=== PATIENT | male | born 1965 | race Caucasian/White ===

== ENCOUNTER 2017-06-01 11:03 | Emergency (ER) | payer BC ==
--- NOTE | 2017-06-01 11:52 | ED ---
General Adult HPI - General Chief complaint: Extremity Injury, Upper Stated complaint: right hand pain Time Seen by Provider: 06/01/17 11:20 Source: patient, RN notes reviewed Mode of arrival: ambulatory Limitations: no limitations - History of Present Illness Initial comments: This is a 51-year-old male who presents emergency Department complaining of hand pain over the fifth metacarpal. Patient states he was working with a chain binder and the chain came off and hit him in the hand. Patient denies any bleeding. Patient denies any finger pain or wrist pain. Patient states it is mildly swollen. Patient states he already had pain medicine before he came straight doesn't need any currently. Patient denies any other injury. - Related Data Home Medications Medication Instructions Recorded Confirmed HYDROcodone/APAP 10-325MG [[place] 1 tab PO Q6H PRN 04/14/16 06/01/17 10-325] Dextroamphetamine/Amphetamine 10 mg PO BID 06/01/17 06/01/17 [Adderall] Allergies Allergy/AdvReac Type Severity Reaction Status Date / Time diphenhydramine AdvReac Rash/Hives Verified 06/01/17 12:25 [From Benadryl] levofloxacin [From Levaquin] AdvReac Chest Pain Verified 06/01/17 12:25 Review of Systems ROS Statement: Those systems with pertinent positive or pertinent negative responses have been documented in the HPI. ROS Other: All systems not noted in ROS Statement are negative. Past Medical History Additional Past Medical History / Comment(s): back History of Any Multi-Drug Resistant Organisms: None Reported Past Surgical History: Appendectomy Past Psychological History: No Psychological Hx Reported Smoking Status: Current every day smoker Past Alcohol Use History: None Reported Past Drug Use History: None Reported, Marijuana General Exam - General Exam Comments Initial Comments: GENERAL Patient is well-developed and well-nourished. Patient is in mild distress. EYES Patient's pupils are equal and round. Extraocular motion is intact SKIN Unremarkable NEURO The patient is alert and oriented 3 PYSCH Patient has normal interpersonal interactions. MUSCULOSKELETAL Patient's right hand is tender along the fifth metacarpal Limitations: no limitations Course Vital Signs 06/01/17 11:20 Temperature 98.8 F Pulse Rate 90 Respiratory 20 Rate Blood Pressure 153/109 O2 Sat by Pulse 96 Oximetry Procedures - Orthopedic Splinting/Casting Injury #1 Side: right Upper Extremity Injury Location: hand Upper Extremity Immobilizer: volar splint Medical Decision Making - Medical Decision Making Patient's x-ray of the hand shows a proximal fifth metacarpal fracture. I [facility] with [facility] and wanted Dr. Robert Patino to see the patient. Disposition Clinical Impression: Fracture of metacarpal Disposition: HOME SELF-CARE Instructions: Hand Fracture (ED) Referrals: Jael Ravi MD [Primary Care Provider] - 1-2 days Time of Disposition: 12:55
--- NOTE | 2017-06-01 12:38 | XR ---
Right hand HISTORY: Trauma and pain 3 views of the right hand There is a comminuted fracture of the proximal fifth metacarpal which extends into the carpometacarpa l joint. Some displacement of the medial fracture fragment is noted which is rotated. No dislocation evident. There is soft tissue swelling. IMPRESSION: Proximal fifth intra-articular metacarpal fracture.
[2017-06-01 13:09] VITALS: BP 138/89; PULSE 72; RESP 18; TEMP 98.2
== END 2017-06-01 13:12 | disposition home or self-care (01) ==
LOC: EC 11:03
DX: S62.306A Unspecified fracture of fifth metacarpal bone, right hand, initial encounter for closed fracture (principal); F17.200 Nicotine dependence, unspecified, uncomplicated; Z88.8 Allergy status to other drugs, medicaments and biological substances; Z88.1 Allergy status to other antibiotic agents; Z79.899 Other long term (current) drug therapy; W22.8XXA Striking against or struck by other objects, initial encounter; Y93.89 Activity, other specified
CPT/HCPCS: 29125; 99283

== ENCOUNTER → 2020-04-21 | Outpatient (CLI) | payer OTHER ==
--- NOTE | 2020-04-21 14:35 | US ---
EXAMINATION TYPE: US kidneys/renal and bladder DATE OF EXAM: 04/21/2020 COMPARISON: MRI lumbar spine 2011. CLINICAL HISTORY: R10.9 R Flank pain N50.8 R Scrotum pain. EXAM MEASUREMENTS: Right Kidney: 11.6 x 5.3 x 5.3 cm Left Kidney: 12.4 x 6.4 x 5.7 cm Right Kidney: No hydronephrosis or masses seen Left Kidney: No hydronephrosis or masses seen Bladder: wnl There is no evidence for hydronephrosis at this point in time. No nephrolithiasis is seen. No larissa s are identified. The urinary bladder is satisfactorily distended. Bilateral ureteral jets are not seen. IMPRESSION: No hydronephrosis noted bilaterally.
--- NOTE | 2020-04-21 14:37 | US ---
EXAMINATION TYPE: US scrotum with doppler. Grayscale and color Doppler Duplex imaging performed of t he scrotum. DATE OF EXAM: 04/21/2020 COMPARISON: NONE CLINICAL HISTORY: R10.9 R Flank pain N50.8 R Scrotum pain. EXAM MEASUREMENTS: TESTICLES: Right Testicle: 4.2 x 1.7 x 1.7 cm Left Testicle: 3.8 x 2.0 x 1.9 cm EPIDIDYMIS HEAD: Right Epididymis: 1.0 cm Left Epididymis: 1.0 cm Doppler performed to assess for testicular vascularity; good bilateral color flow and waveforms are s een. Presence of hydroceles: no Presence of varicoceles: no Testicles are homogeneous in echotexture without suspicious focal masses. No concerning scrotal fluid collection or hydroceles bilaterally. Color images show satisfactory blood flow bilaterally. Compari son imaging shows no significant increased or decreased asymmetric blood flow to either testicle. IMPRESSION: Unremarkable study.
== END | disposition home or self-care (01) ==
LOC: RADUSWWP 13:43
PROVIDERS: ATTEND Urology
DX: N50.82 Scrotal pain (principal); R10.9 Unspecified abdominal pain
CPT/HCPCS: 76770; 76870; 93975

== ENCOUNTER 2021-08-24 00:15 | Observation (INO) | payer BC ==
[2021-08-24] MEDS ORDERED: ACETAMINOPHEN TAB 500 MG TAB PO STA (00:49)
[2021-08-24] MEDS ORDERED: IBUPROFEN 600 MG TAB PO STA (00:49)
[2021-08-24] MEDS ORDERED: SODIUM CHLORIDE 0.9% 500 ML 500 ML IV STA (01:02)
[2021-08-24] MEDS ORDERED: SODIUM CHLORIDE 0.9% 1,000 ML IV STA ×2 (01:02)
[2021-08-24] MEDS ORDERED: MORPHINE SULFATE 4 MG/ML SYRINGE IV STA (01:02)
--- NOTE | 2021-08-24 01:02 | ED ---
Recheck HPI - General Chief Complaint: Fever Stated Complaint: Fever Time Seen by Provider: 08/24/21 00:16 Source: patient, EMS, RN notes reviewed, old records reviewed Mode of arrival: EMS Limitations: no limitations - History of Present Illness Initial Comments: This is a 55-year-old male to the emergency room today. He presents today for evaluation of recent dog bite. Patient was bit by dog known dog with shots up-to-date in multiple spots. Both his face is handed his abdomen. Minimal bleeding at the sites no need for repair no sutures were placed. Today had significant fevers no other complaints. Fevers shaking and chills on arrival to emergency department. Does complain of some pain to his face but no other area of significant pain MD Complaint: wound re-check, other (Fever) -: hour(s) Returns Today for: persistent/worsening pain related to initial visit, other (Fever) Symptoms Since Prior Visit: fever Associated Symptoms: fever, chills Treatments Prior to Arrival: other (none) - Related Data Home Medications Medication Instructions Recorded Confirmed Naproxen Sodium [Aleve] 1 tab PO BID PRN 11/08/20 11/08/20 Allergies Allergy/AdvReac Type Severity Reaction Status Date / Time diphenhydramine AdvReac Rash/Hives Verified 11/08/20 16:09 [From Benadryl] levofloxacin [From Levaquin] AdvReac Chest Pain Verified 11/08/20 16:09 Review of Systems ROS Statement: Those systems with pertinent positive or pertinent negative responses have been documented in the HPI. ROS Other: All systems not noted in ROS Statement are negative. Past Medical History Additional Past Medical History / Comment(s): rt inguinal hernia,chronic back pain, "gallbladder issues" History of Any Multi-Drug Resistant Organisms: None Reported Past Surgical History: Appendectomy Past Anesthesia/Blood Transfusion Reactions: No Reported Reaction, Motion Sickness Additional Past Anesthesia/Blood Transfusion Reaction / Comment(s): no hx blood transfusion Past Psychological History: No Psychological Hx Reported Smoking Status: Current every day smoker Past Alcohol Use History: None Reported Past Drug Use History: None Reported - Past Family History Mother Family Medical History: No Reported History Father Family Medical History: Cancer General Exam - General Exam Comments Initial Comments: Patient does have puncture wound dog bite to face with surrounding warmth and cellulitis, right hand and right side of abdomen Limitations: no limitations General appearance: alert, in no apparent distress, anxious Head exam: Present: atraumatic, normocephalic, normal inspection Eye exam: Present: normal appearance, PERRL, EOMI. Absent: scleral icterus, conjunctival injection, periorbital swelling ENT exam: Present: normal exam, mucous membranes moist Neck exam: Present: normal inspection. Absent: tenderness, meningismus, lymphadenopathy Respiratory exam: Present: normal lung sounds bilaterally. Absent: respiratory distress, wheezes, rales, rhonchi, stridor Cardiovascular Exam: Present: normal rhythm, tachycardia, normal heart sounds. Absent: systolic murmur, diastolic murmur, rubs, gallop, clicks GI/Abdominal exam: Present: soft, normal bowel sounds. Absent: distended, tenderness, guarding, rebound, rigid Extremities exam: Present: normal inspection, full ROM, normal capillary refill. Absent: tenderness, pedal edema, joint swelling, calf tenderness Back exam: Present: normal inspection Neurological exam: Present: alert, oriented X3, CN II-XII intact Psychiatric exam: Present: normal affect, normal mood Skin exam: Present: warm, dry, intact, normal color. Absent: rash Course Vital Signs 08/24/21 08/24/21 00:16 00:56 Temperature 99.1 F Pulse Rate 108 H 111 H Respiratory 18 18 Rate Blood Pressure 170/111 166/103 O2 Sat by Pulse 96 96 Oximetry - Reevaluation(s) Reevaluation #1: 08/24/21 03:05 Medical record is reviewed Reevaluation #2: 08/24/21 03:05 Patient informed results and questions answered Medical Decision Making - Medical Decision Making 55 male to the emergency department for evaluation. Patient presents today for evaluation of dog bite. Dogbite in different areas right arm and the right abdomen none gaping this was 3 days ago and presents with fever chills and bacteremia today, patient be admitted for IV antibiotics - Lab Data Result diagrams: 08/24/21 01:02 08/24/21 01:02 Lab Results 08/24/21 08/24/21 08/24/21 Range/Units 01:02 01:02 01:02 WBC 10.3 (3.8-10.6) k/uL RBC 5.12 (4.30-5.90) m/uL Hgb 15.6 (13.0-17.5) gm/dL Hct 45.9 (39.0-53.0) % MCV 89.6 (80.0-100.0) fL MCH 30.5 (25.0-35.0) pg MCHC 34.0 (31.0-37.0) g/dL RDW 12.8 (11.5-15.5) % Plt Count 179 (150-450) k/uL MPV 6.8 Neutrophils % 91 % Lymphocytes % 5 % Monocytes % 2 % Eosinophils % 0 % Basophils % 0 % Neutrophils # 9.3 H (1.3-7.7) k/uL Lymphocytes # 0.6 L (1.0-4.8) k/uL Monocytes # 0.2 (0-1.0) k/uL Eosinophils # 0.1 (0-0.7) k/uL Basophils # 0.0 (0-0.2) k/uL Sodium 133 L (137-145) mmol/L Potassium 4.1 (3.5-5.1) mmol/L Chloride 103 (98-107) mmol/L Carbon Dioxide 21 L (22-30) mmol/L Anion Gap 9 mmol/L BUN 18 (9-20) mg/dL Creatinine 0.89 (0.66-1.25) mg/dL Est GFR (CKD-EPI)AfAm >90 (>60 ml/min/1.73 sqM) Est GFR (CKD-EPI)NonAf >90 (>60 ml/min/1.73 sqM) Glucose 113 H (74-99) mg/dL Plasma Lactic Acid Celestino 1.0 (0.7-2.0) mmol/L Calcium 9.4 (8.4-10.2) mg/dL Phosphorus 2.9 (2.5-4.5) mg/dL Magnesium 1.4 L (1.6-2.3) mg/dL Total Bilirubin 0.8 (0.2-1.3) mg/dL AST 44 (17-59) U/L ALT 37 (4-49) U/L Alkaline Phosphatase 97 (38-126) U/L Troponin I (0.000-0.034) ng/mL Total Protein 7.3 (6.3-8.2) g/dL Albumin 4.2 (3.5-5.0) g/dL Lipase 251 (23-300) U/L 08/24/21 Range/Units 01:02 WBC (3.8-10.6) k/uL RBC (4.30-5.90) m/uL Hgb (13.0-17.5) gm/dL Hct (39.0-53.0) % MCV (80.0-100.0) fL MCH (25.0-35.0) pg MCHC (31.0-37.0) g/dL RDW (11.5-15.5) % Plt Count (150-450) k/uL MPV Neutrophils % % Lymphocytes % % Monocytes % % Eosinophils % % Basophils % % Neutrophils # (1.3-7.7) k/uL Lymphocytes # (1.0-4.8) k/uL Monocytes # (0-1.0) k/uL Eosinophils # (0-0.7) k/uL Basophils # (0-0.2) k/uL Sodium (137-145) mmol/L Potassium (3.5-5.1) mmol/L Chloride (98-107) mmol/L Carbon Dioxide (22-30) mmol/L Anion Gap mmol/L BUN (9-20) mg/dL Creatinine (0.66-1.25) mg/dL Est GFR (CKD-EPI)AfAm (>60 ml/min/1.73 sqM) Est GFR (CKD-EPI)NonAf (>60 ml/min/1.73 sqM) Glucose (74-99) mg/dL Plasma Lactic Acid Celestino (0.7-2.0) mmol/L Calcium (8.4-10.2) mg/dL Phosphorus (2.5-4.5) mg/dL Magnesium (1.6-2.3) mg/dL Total Bilirubin (0.2-1.3) mg/dL AST (17-59) U/L ALT (4-49) U/L Alkaline Phosphatase (38-126) U/L Troponin I <0.012 (0.000-0.034) ng/mL Total Protein (6.3-8.2) g/dL Albumin (3.5-5.0) g/dL Lipase (23-300) U/L - EKG Data -: EKG Interpreted by Me (EKG shows sinus a 96 NC 162 QRS 78 QTc. 498) Disposition Clinical Impression: Fever, Dog bite Disposition: ADMITTED IP TO THIS HOSP Condition: Good Is patient prescribed a controlled substance at d/c from ED?: No Referrals: Jael Ravi MD [Primary Care Provider] - 1-2 days
[2021-08-24 01:43] LABS: Basophils % (A) 0 %; Eosinophils # (A) 0.1 k/uL (0-0.7); Eosinophils % (A) 0 %; HCT 45.9 % (39.0-53.0); HGB 15.6 gm/dL (13.0-17.5); Lymphocytes # (A) 0.6 k/uL (1.0-4.8); Lymphocytes % (A) 5 %; MCH 30.5 pg (25.0-35.0); MCV 89.6 fL (80.0-100.0); Mean Platelet Volume 6.8; Monocytes # (A) 0.2 k/uL (0-1.0); Monocytes % (A) 2 %; Neutrophils # (A) 9.3 k/uL (1.3-7.7); Neutrophils % (A) 91 %; Platelet Count 179 k/uL (150-450); RBC 5.12 m/uL (4.30-5.90); RDW 12.8 % (11.5-15.5); WBC 10.3 k/uL (3.8-10.6)
[2021-08-24 01:55] LABS: ALT 37 U/L (4-49); AST 44 U/L (17-59); African American GFR (CKD) >90 (>60 ml/min/1.73 sqM); Albumin 4.2 g/dL (3.5-5.0); Alkaline Phosphatase 97 U/L (38-126); Anion Gap 9 mmol/L; Blood Urea Nitrogen 18 mg/dL (9-20); Calcium 9.4 mg/dL (8.4-10.2); Carbon Dioxide 21 mmol/L (22-30); Chloride 103 mmol/L (98-107); Glucose 113 mg/dL (74-99); Lipase 251 U/L (23-300); Magnesium 1.4 mg/dL (1.6-2.3); Non-African American GFR(CKD) >90 (>60 ml/min/1.73 sqM); Phosphorus 2.9 mg/dL (2.5-4.5); Potassium 4.1 mmol/L (3.5-5.1); Sodium 133 mmol/L (137-145); Total Bilirubin 0.8 mg/dL (0.2-1.3); Total Protein 7.3 g/dL (6.3-8.2)
[2021-08-24] MEDS ORDERED: ACETAMINOPHEN TAB 325 MG TAB PO PRN (03:01)
[2021-08-24] MEDS ORDERED: ONDANSETRON 4 MG/2 ML VIAL IVP PRN (03:01)
[2021-08-24] MEDS ORDERED: NALOXONE 0.4 MG/ML 1 ML VIAL IV PRN (03:01)
[2021-08-24] MEDS ORDERED: VANCOMYCIN IV PER PHARMACY 1 EACH MISC MISCELLANE PRN (03:01)
[2021-08-24] MEDS ORDERED: KETOROLAC 15 MG/ML 1 ML VIAL IVP PRN (03:01)
[2021-08-24] MEDS ORDERED: AMPICILLIN-SULBACTAM 3 GM in SODIUM CHLORIDE 0.9% 100 ML IVPB STA (03:01)
[2021-08-24] MEDS ORDERED: MORPHINE SULFATE 4 MG/ML SYRINGE IV PRN (03:01)
[2021-08-24] MEDS ORDERED: IBUPROFEN 400 MG TAB PO PRN (03:01)
[2021-08-24] MEDS ORDERED: MAGNESIUM OXIDE 400 MG TAB PO STA (03:04)
[2021-08-24] MEDS ORDERED: VANCOMYCIN 1,500 MG in SODIUM CHLORIDE 0.9% 250 ML IVPB ONE (03:15)
[2021-08-24] MEDS: SODIUM CHLORIDE 0.9% 1,000 ML IV SCH ×3 (03:21→19:19)
[2021-08-24 04:08] LABS: Appearance,Urine Clear (Clear); Bilirubin,Urine Negative (Negative); Blood,Urine Negative (Negative); Color,Urine Light Yellow; Glucose,Urine (UA) Negative (Negative); Ketones,Urine Negative (Negative); Leukocyte Esterase,Urine Negative (Negative); Nitrite,Urine Negative (Negative); PH, Urine 6.5 (5.0-8.0); Protein,Urine Negative (Negative); Specific Gravity,Urine 1.017 (1.001-1.035); Urobilinogen,Urine <2.0 mg/dL (<2.0)
[2021-08-24] MEDS: MAGNESIUM OXIDE 400 MG TAB PO SCH (09:14)
[2021-08-24] MEDS: AMPICILLIN-SULBACTAM 3 GM in SODIUM CHLORIDE 0.9% 100 ML IVPB SCH ×3 (09:15→21:07)
--- NOTE | 2021-08-24 16:48 | P.HPIM ---
History of Present Illness H&P Date: 08/24/21 Chief Complaint: .By This is a 55-year-old male, with history of chronic back pain, who presents to the emergency room for evaluation of recent dog bite. Patient was bit by known dog with shots up-to-date in multiple spots, including face right hand and right abdomen. Minimal bleeding at the sites no need for repair no sutures were placed. Today had significant fevers no other complaints. Patient went to urgent care where he was given IV antibiotics and was sent home with oral medication; patient reports developing fever and shaking chills and decided to come to ED. Does complain of some pain to his face but no other area of significant pain Review of Systems REVIEW OF SYSTEMS: CONSTITUTIONAL: No fever, no malaise, no fatigue. HEENT: No recent visual problems or hearing problems. Denied any sore throat. CARDIOVASCULAR: No chest pain, orthopnea, PND, no palpitations, no syncope. PULMONARY: No shortness of breath, no cough, no hemoptysis. GASTROINTESTINAL: No diarrhea, no nausea, no vomiting, no abdominal pain. NEUROLOGICAL: No headaches, no weakness, no numbness. HEMATOLOGICAL: Denies any bleeding or petechiae. GENITOURINARY: Denies any burning micturition, frequency, or urgency. MUSCULOSKELETAL/RHEUMATOLOGICAL: Denies any joint pain, swelling, or any muscle pain. ENDOCRINE: Denies any polyuria or polydipsia. The rest of the 14-point review of systems is negative. Past Medical History Additional Past Medical History / Comment(s): rt inguinal hernia,chronic back pain, "gallbladder issues" History of Any Multi-Drug Resistant Organisms: None Reported Past Surgical History: Appendectomy Past Anesthesia/Blood Transfusion Reactions: No Reported Reaction, Motion Sickness Additional Past Anesthesia/Blood Transfusion Reaction / Comment(s): no hx blood transfusion Past Psychological History: No Psychological Hx Reported Smoking Status: Current every day smoker Past Alcohol Use History: None Reported Past Drug Use History: None Reported - Past Family History Mother Family Medical History: No Reported History Father Family Medical History: Cancer Medications and Allergies Home Medications Medication Instructions Recorded Confirmed Type No Known Home Medications 08/24/21 08/24/21 History Allergies Allergy/AdvReac Type Severity Reaction Status Date / Time diphenhydramine Allergy Rash/Hives Verified 08/24/21 06:45 [From Benadryl] levofloxacin [From Levaquin] AdvReac Chest Pain Verified 08/24/21 06:45 Physical Exam Vitals: Vital Signs Temp Pulse Pulse Resp BP BP Pulse Ox 08/24/21 09:39 98.3 F 85 18 102/66 93 L 08/24/21 06:14 98.1 F 18 08/24/21 03:31 99.1 F 101 H 18 111/86 96 08/24/21 00:56 111 H 18 166/103 96 08/24/21 00:16 99.1 F 108 H 18 170/111 96 Intake and Output 08/23/21 08/24/21 08/24/21 22:59 06:59 14:59 Other: Voiding Method Toilet Weight 88.451 kg - Constitutional General appearance: Present: average body habitus, cooperative, no acute distress - EENT Eyes: Present: anicteric sclerae, EOMI, PERRLA, normal appearance Neck: Present: normal ROM. Absent: lymphadenopathy, rigidity, thyromegaly Carotids: negative: bruit present Thyroid: bilateral: normal size, negative: enlarged, nodule Respiratory: bilateral: CTA, negative: rales, rhonchi, wheezing Cardiovascular; regular; normal: S1, S2 Abnormal Heart Sounds: Absent: systolic murmur, diastolic murmur General gastrointestinal: Present: normal bowel sounds, soft. Absent: distended, organomegaly, tenderness Genitourinary Comment(s): deferred Integumentary: Patient has marked erythema, induration and swelling on right side of face: Bite marcus on right hand and right side of abdomen which are healing well Neurologic: Present: CNII-XII intact. Absent: focal deficits Musculoskeletal: Present: gait normal, strength equal bilaterally Psychiatric: Present: A&O x's 3, appropriate affect, intact judgment & insight Results CBC & Chem 7: 08/24/21 01:02 08/24/21 01:02 Labs: Abnormal Lab Results - Last 24 Hours (Table) 08/24/21 08/24/21 08/24/21 Range/Units 01:02 01:02 01:02 Neutrophils # 9.3 H (1.3-7.7) k/uL Lymphocytes # 0.6 L (1.0-4.8) k/uL Sodium 133 L (137-145) mmol/L Carbon Dioxide 21 L (22-30) mmol/L Glucose 113 H (74-99) mg/dL Magnesium 1.4 L (1.6-2.3) mg/dL C-Reactive Protein 1.6 H (<1.0) mg/dL Assessment and Plan Assessment: 1. Dog bite/bacteremia - Patient has been placed on IV Unasyn 3 g every 8 hours, vancomycin IV pharmacy to dose, along with Toradol 15 mg IV every 6 hours when necessary for inflammation and pain - Blood cultures are obtained and pending; ID is consulted for recommendations on IV antibiotics 2. Chronic back pain; continue with Toradol versus morphine per 3. Hyponatremia; mild; we will keep patient on IV fluid hydration with normal saline at rate of 75 mL an hour DVT prophylaxis; SCDs CODE STATUS; full code
[2021-08-24] MEDS: VANCOMYCIN 1,500 MG in SODIUM CHLORIDE 0.9% 250 ML IVPB SCH (17:23)
[2021-08-25] MEDS: SODIUM CHLORIDE 0.9% 1,000 ML IV SCH ×2 (02:36→12:02)
[2021-08-25] MEDS: AMPICILLIN-SULBACTAM 3 GM in SODIUM CHLORIDE 0.9% 100 ML IVPB SCH ×3 (02:36→14:51)
[2021-08-25] MEDS: VANCOMYCIN 1,500 MG in SODIUM CHLORIDE 0.9% 250 ML IVPB SCH (05:07)
[2021-08-25] MEDS: MAGNESIUM OXIDE 400 MG TAB PO SCH (08:27)
[2021-08-25] MEDS ORDERED: NICOTINE 14MG/24HR PATCH TRANSDERM SCH (09:00)
--- NOTE | 2021-08-25 09:39 | P.CONS ---
History of Present Illness - Reason for Consult Consult date: 08/24/21 dog bite cellultiis Requesting physician: Ursula Ramires - Chief Complaint pain to right side of face x 3 days - History of Present Illness History of present illness : Patient is 65-year-old male presenting to the ER early this morning for evaluation of worsening pain to his right side of the face in this patient apparently recently bitten by a dog and he went to do her job at home patient did have a laceration to the right side of the face abdominal and hand area patient be complaining of mostly pain to the right side of the face to be throbbing intensity is almost out of 10 when he presented to hospital did have small laceration but no drainage he did have a cut on his bite on his right hand and abdominal wall however did not have significant pain to those area with the symptom the patient was evaluated by the ER physician on arrival to the ER the patient did have low-grade fever of 99.1 F patient did have a normal white count of 10.3 creatinine was normal urine was negative blood cultures obtained which are currently pending patient was started on Unasyn and vancomycin has been admitted to hospital infectious disease was consulted for further management of antibiotic therapy patient did report some improvement in his symptoms especially pain to the right side of the face since being admitted to the hospital Review of system: CONSTITUTIONAL: Positive for weakness denies high-grade fever. EYES: No complaint. ENT as per history of present illness. RESPIRATORY: No complaint. CARDIOVASCULAR: No complaint. GENITOURINARY: No complaint. GASTROINTESTINAL: No complaint. MUSCULOSKELETAL: No complaint. INTEGUMENTARY: As per history of present illness. PSYCHOLOGIC: No complaint. ENDOCRINE: No complaint. NEUROLOGIC: No complaint. Past medical history : Reviewed, documented below Past surgical history : Reviewed, documented below Social history: Reviewed, documented below Medications: Reviewed, as documented below EXAMINATION: Vital sigans= Reviewed and documented below GENERAL DESCRIPTION: Middle-aged male lying in bed, no distress. No tachypnea or accessory muscle of respiration use. HEENT: Shows Pallor , no scleral icterus. Oral mucous membrane is dry. Patient did have a swelling and redness of the right side of the face which is tender to touch but no fluctuation or induration was noticed NECK: Trachea central, no thyromegaly. LUNGS: Unlabored breathing. Clear to auscultation anteriorly. No wheeze or crackle. HEART: S1, S2, regular rate and rhythm. ABDOMEN: Soft, no tenderness , guarding or rigidity EXTREMITIES: No edema of feet. SKIN: No rash, no masses palpable. Patient did have a cut on his right hand and right side abdominal wall but no swelling no redness no drainage NEUROLOGICAL: The patient is awake, alert, oriented x3, mood and affect normal. LABS AND RADIOLOGY: Reviewed results see below Assessment : Patient did have multiple bite wounds from a dog which is up-to-date on his vaccination per the patient as reported by the dog powder compounder and the dog can be observed none the patient presented to hospital with significant dog bite cellulitis especially involving the face and will need to cover for the polymicrobial lisset of the dog mouth Plan: 1-Unasyn 3 g every 6 hours 2-discontinue vancomycin We will follow on clinical condition and cultures to further adjust medication if needed Thank you for this consultation we will follow the patient along with you Past Medical History Additional Past Medical History / Comment(s): rt inguinal hernia,chronic back pain, "gallbladder issues" History of Any Multi-Drug Resistant Organisms: None Reported Past Surgical History: Appendectomy, Tonsillectomy Past Anesthesia/Blood Transfusion Reactions: No Reported Reaction, Motion Sic kness Additional Past Anesthesia/Blood Transfusion Reaction / Comm: no hx blood transfusion Past Psychological History: No Psychological Hx Reported Smoking Status: Current every day smoker Past Alcohol Use History: None Reported Additional Past Alcohol Use History / Comment(s): started smoking at age 13,1 ppd Past Drug Use History: None Reported Additional Drug Use History / Comment(s): uses marijuana occas - Past Family History Mother Family Medical History: No Reported History Father Family Medical History: Cancer Medications and Allergies Home Medications Medication Instructions Recorded Confirmed Type No Known Home Medications 08/24/21 08/24/21 History Allergies Allergy/AdvReac Type Severity Reaction Status Date / Time diphenhydramine Allergy Rash/Hives Verified 08/24/21 06:45 [From Benadryl] levofloxacin [From Levaquin] AdvReac Chest Pain Verified 08/24/21 06:45 Physical Exam Vitals: Vital Signs Temp Pulse Pulse Resp BP BP BP 08/24/21 12:27 97.9 F 76 16 117/70 08/24/21 09:39 98.3 F 85 18 102/66 08/24/21 06:14 98.1 F 18 08/24/21 03:31 99.1 F 101 H 18 111/86 08/24/21 00:56 111 H 18 166/103 08/24/21 00:16 99.1 F 108 H 18 170/111 Pulse Ox 08/24/21 12:27 97 08/24/21 09:39 93 L 08/24/21 06:14 08/24/21 03:31 96 08/24/21 00:56 96 08/24/21 00:16 96 Intake and Output 08/23/21 08/24/21 08/24/21 22:59 06:59 14:59 Other: Voiding Method Toilet Weight 88.451 kg 88.451 kg Results CBC & Chem 7: 08/24/21 01:02 08/24/21 01:02 Labs: Abnormal Lab Results - Last 24 Hours (Table) 08/24/21 08/24/21 08/24/21 Range/Units 01:02 01:02 01:02 Neutrophils # 9.3 H (1.3-7.7) k/uL Lymphocytes # 0.6 L (1.0-4.8) k/uL Sodium 133 L (137-145) mmol/L Carbon Dioxide 21 L (22-30) mmol/L Glucose 113 H (74-99) mg/dL Magnesium 1.4 L (1.6-2.3) mg/dL C-Reactive Protein 1.6 H (<1.0) mg/dL
[2021-08-25 10:09] LABS: Basophils # (A) 0.03 X 10*3/uL (0.00-0.10); Basophils % (A) 0.4 %; Eosinophils # (A) 0.02 X 10*3/uL (0.04-0.35); Eosinophils % (A) 0.3 %; HCT 40.2 % (39.6-50.0); HGB 13.4 g/dL (13.0-17.0); Lymphocytes # (A) 1.06 X 10*3/uL (0.90-5.00); Lymphocytes % (A) 15.6 %; MCH 29.5 pg (27.0-32.0); MCHC 33.3 g/dL (32.0-37.0); MCV 88.4 fL (80.0-97.0); Mean Platelet Volume 10.5 fL (9.5-12.2); Monocytes # (A) 0.56 X 10*3/uL (0.20-1.00); Monocytes % (A) 8.2 %; Neutrophils # (A) 5.09 X 10*3/uL (1.80-7.70); Neutrophils % (A) 75.1 %; Platelet Count 135 X 10*3/uL (140-440); RBC 4.55 X 10*6/uL (4.40-5.60); RDW 12.8 % (11.5-14.5); WBC 6.79 X 10*3/uL (4.50-10.00)
[2021-08-25 11:03] LABS: African American GFR (CKD) 110.3 (60.0-200.0); Albumin 3.3 g/dL (3.8-4.9); Albumin/Globulin Ratio 1.43 (1.60-3.17); Anion Gap 10.6 mmol/L (4.00-12.00); BUN/Creat Ratio 13.78 Ratio (12.00-20.00); Blood Urea Nitrogen 12.4 mg/dL (9.0-27.0); Carbon Dioxide 19.4 mmol/L (21.6-31.8); Globulin 2.3 g/dL (1.6-3.3); Magnesium 1.7 mg/dL (1.5-2.4); Non-African American GFR(CKD) 95.1 (60.0-200.0); Potassium 4.1 mmol/L (3.5-5.5); Total Bilirubin 0.5 mg/dL (0.30-1.20); Total Protein 5.6 g/dL (6.2-8.2)
[2021-08-25 14:36] VITALS: BP 110/64; RESP 15; TEMP 97.7
[2021-08-25 14:56] VITALS: PULSE 70
--- NOTE | 2021-08-25 15:23 | PN ---
PROGRESS NOTE DATE OF SERVICE: 08/25/2021 REASON FOR FOLLOWUP: Right facial dog bite cellulitis. INTERVAL HISTORY: The patient is afebrile. The patient is feeling much better. Overall pain and discomfort to the right side of the face has improved. The abdominal wall and the right hand area of dog bite currently with no pain, swelling, redness or any drainage. PHYSICAL EXAMINATION: Blood pressure is 110/64 with a pulse of 55, temperature 97.7. He is 95% on room air. General description is a middle-aged male up in the room in no distress. HEENT EXAMINATION: Right facial swelling and redness has much improved. No induration or drainage. LUNGS: Unlabored breathing. Clear to auscultation anteriorly. HEART: S1, S2. Regular rate and rhythm. ABDOMEN: Soft. No tenderness. Abdominal wall and right hand area of laceration dog bite currently with no swelling, redness or drainage. LABS: Hemoglobin is 13.2, white count 6.79, creatinine is 0.9. DIAGNOSTIC IMPRESSION AND PLAN: Patient with a right facial dog bite cellulitis with dog bite to the abdominal wall and right hand. Both areas are not that inflamed. Patient has shown overall improvement on IV Unasyn and wants to go home. Antibiotic will be switched over to oral Augmentin 875 b.i.d. for 10 days. Prescription was sent to pharmacy. Close outpatient followup. MMODL / IJN: [id number] /
== END 2021-08-25 16:13 | disposition home or self-care (01) ==
LOC: EC 00:15 → 6NMEDSUR 03:04 → 6PED 04:38 → 6NMEDSUR 04:39
PROVIDERS: ADMIT Hospitalist; ATTEND Hospitalist
DX: L03.211 Cellulitis of face (principal); S61.451A Open bite of right hand, initial encounter; S31.159A Open bite of abdominal wall, unspecified quadrant without penetration into peritoneal cavity, initial encounter; S01.85XA Open bite of other part of head, initial encounter; F17.210 Nicotine dependence, cigarettes, uncomplicated; G89.29 Other chronic pain; M54.9 Dorsalgia, unspecified; E87.1 Hypo-osmolality and hyponatremia; K40.90 Unilateral inguinal hernia, without obstruction or gangrene, not specified as recurrent; W54.0XXA Bitten by dog, initial encounter; Z88.8 Allergy status to other drugs, medicaments and biological substances; Z88.1 Allergy status to other antibiotic agents; Z90.49 Acquired absence of other specified parts of digestive tract; Z80.9 Family history of malignant neoplasm, unspecified
CPT/HCPCS: 96376; 96361 ×2; 96366 ×3; 96365; 96367; 96375; 99285; 36415; 93005; 80053 ×2; 83605; 83690; 83735 ×2; 84100; 84484; 85025 ×2; 86140 ×2; 81003; 87040; 84145; G0378 ×2; S4990; J3370 ×2; J2270; J0295 ×2; 99284

== ENCOUNTER → 2023-05-03 | Outpatient (CLI) | payer BC ==
--- NOTE | 2023-05-05 19:07 | CT ---
EXAMINATION TYPE: CT abdomen pelvis wo con DATE OF EXAM: 05/03/2023 COMPARISON: None INDICATION: poss kidney stone DLP: 1058 mGycm, Automated exposure control for dose reduction was used. CONTRAST: 0 mL of Isovue 300. Study performed without Oral Contrast TECHNIQUE: Axial images were obtained from above the diaphragm to the pubic rami in the axial plane a t 5 mm thick sections. Reconstructed images are reviewed on the computer in the coronal plane. FINDINGS: Limited CT sections are obtained the lung bases. The lung bases are clear. CT ABDOMEN: Liver: Normal Spleen: Normal Pancreas: Normal Adrenal glands: The adrenal glands are normal. Gallbladder: Normal Kidneys: No masses are evident. No hydronephrosis is present. No cysts are present. There is a tin y calcification within the anterior mid cortex left kidney. Series 3 image 52. No obstructing renal s tones are present. Aorta: Vascular calcification is within the aorta. Inferior vena cava: Normal. CT PELVIS: Loops of bowel within the abdomen and pelvis are normal. Study is performed without oral contrast limiting bowel evaluation. Appendix: Not visualized. No dilated tubular structure or inflammatory changes are evident. Urinary bladder: Normal. Genitourinary structures: Prostate appears unremarkable. Osseous structures: No suspicious lytic or sclerotic lesions. IMPRESSIONS: 1. Tiny calcification left kidney. Consider medullary sponge kidney. No obstructing renal or uretera l stones are evident.
== END | disposition home or self-care (01) ==
LOC: RADCTMAIN 11:33
PROVIDERS: ATTEND Internal Medicine
DX: N20.0 Calculus of kidney (principal); N28.89 Other specified disorders of kidney and ureter
CPT/HCPCS: 74176

== ENCOUNTER 2024-08-15 06:56 | Emergency (ER) | payer BC ==
[2024-08-15 07:02] VITALS: BP 168/94; PULSE 66; RESP 18; TEMP 97.7
--- NOTE | 2024-08-15 07:16 | ED ---
Extremity Problem HPI - General Chief complaint: Extremity Injury, Lower Stated complaint: Hip Pain Time Seen by Provider: 08/15/24 07:03 Source: patient, EMS, RN notes reviewed Mode of arrival: EMS Limitations: no limitations - History of Present Illness Initial comments: This is a 58-year-old male who presents to the emergency department for left hip pain. Reports left hip pain increasing over the last week. 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 He borrowed some Vicodin from his neighbor, but states that that did not even touch the pain. States that he feels like he is being stabbed in the hip. He decided to call EMS this morning because he could not put any weight on the left leg. He was given 9 mg of morphine by EMS with only mild relief in symptoms. MD Complaint: extremity pain - Related Data Previous Rx's Medication Instructions Recorded Amoxic-Pot Clav 875-125Mg 1 tab PO BID 10 Days #20 tab 08/25/21 [Augmentin 875-125] HYDROcodone/APAP 7.5-325MG [[place] 1 tab PO Q6HR PRN 3 Days #12 tab 08/15/24 7.5-325] predniSONE 50 mg PO DAILY 5 Days #5 tab 08/15/24 valACYclovir HCL [Valacyclovir] 1,000 mg PO Q8H 7 Days #21 tab 08/15/24 Allergies Allergy/AdvReac Type Severity Reaction Status Date / Time diphenhydramine Allergy Rash/Hives Verified 08/15/24 07:02 [From Benadryl] levofloxacin [From Levaquin] AdvReac Chest Pain Verified 08/15/24 07:02 Review of Systems ROS Statement: Those systems with pertinent positive or pertinent negative responses have been documented in the HPI. ROS Other: All systems not noted in ROS Statement are negative. Past Medical History Additional Past Medical History / Comment(s): rt inguinal hernia,chronic back pain, "gallbladder issues" History of Any Multi-Drug Resistant Organisms: None Reported Past Surgical History: Appendectomy, Tonsillectomy Past Anesthesia/Blood Transfusion Reactions: No Reported Reaction, Motion Sickness Additional Past Anesthesia/Blood Transfusion Reaction / Comment(s): no hx blood transfusion Past Psychological History: No Psychological Hx Reported Smoking Status: Current every day smoker Past Alcohol Use History: None Reported Past Drug Use History: None Reported - Past Family History Mother Family Medical History: No Reported History Father Family Medical History: Cancer General Exam Limitations: no limitations General appearance: alert, in no apparent distress Head exam: Present: atraumatic, normocephalic, normal inspection Respiratory exam: Present: normal lung sounds bilaterally. Absent: respiratory distress, wheezes, rales, rhonchi, stridor Cardiovascular Exam: Present: regular rate, normal rhythm, normal heart sounds. Absent: systolic murmur, diastolic murmur, rubs, gallop, clicks Extremities exam: Present: other (Tenderness to palpation over the left hip. Range of motion induces pain. There is no shortening or rotation of the lower extremity. Grouped vesicular lesions around the left ankle, left hip, and left lower back. 2+ DP and PT pulses) Neurological exam: Present: alert, oriented X3, CN II-XII intact Psychiatric exam: Present: normal affect, normal mood Skin exam: Present: warm, dry, intact, normal color Course Vital Signs 08/15/24 06:57 Temperature 97.7 F Pulse Rate 66 Respiratory 18 Rate Blood Pressure 168/94 O2 Sat by Pulse 91 L Oximetry Medical Decision Making - Medical Decision Making This is a 58 year old male who presents to the emergency department for left hip pain. Was pt. sent in by a medical professional or institution? @ -No Did you speak to anyone other than the patient for history? @ -No Did you review nursing and triage notes? @ -Yes, and I agree, it is accurate with regards to the patient's symptoms. Were old charts reviewed? @ -No Differential Diagnosis? @ -Differential Hip Pain: Fracture, dislocation, osteoarthritis, rheumatoid arthritis, septic arthritis, gout, synovitis, piriformis syndrome, bursitis, arterial occlusion, DVT, femoroacetabular inpingement, labral tear, avascular necrosis, SI joint dysfunction, this is not meant to be an all-inclusive list. EKG interpreted by me (3pts min.)? @ -Not obtained X-rays interpreted by me (1pt min.)? @ -X-ray of the left hip and AP pelvis obtained. My interpretation identifies no acute fractures. CT interpreted by me (1pt min.)? @ -Not obtained U/S interpreted by me (1pt. min.)? @ -Not obtained What testing was considered but not performed? (CT, X-rays, U/S, labs)? Why? @ -None What meds were considered but not given? Why? @ -None Did you discuss the management of the patient with other professionals? @ -No Did you reconcile home meds? @ -No Was smoking cessation discussed for >3mins.? @ -I discussed smoking cessation for greater than 3 minutes. The risk of smoking were discussed with the patient including but not limited to risks of cancer, stroke, coronary artery disease and COPD. Also discussed with patient were multiple methods of quitting smoking. Lastly we discussed the financial cost of smoking. Was critical care preformed (if so, how long)? @ -No Were there social determinants of health that impacted care today? How? (Homelessness, low income, unemployed, alcoholism, drug addiction, transportation, low edu. Level, literacy, decrease access to med. care, snf, rehab)? @ -No Was there de-escalation of care discussed even if they declined? (Discuss DNR or withdrawal of care, Hospice)? @ -No What co-morbidities impacted this encounter? (DM, HTN, Smoking, COPD, CAD, Cancer, CVA, Hep., AIDS, mental health diagnosis, sleep apnea, morbid obesity)? @ -Smoking Was patient admitted / discharged? @ -Discharged. X-ray of the left hip and AP pelvis obtained revealing no acute process. Patient evaluated with ED attending, Dr. Reddy. Patient was found to have grouped vesicular lesions in several areas on the left lower extremity, including the hip, suggestive of shingles. There were no lesions on the right side. Believes that these only popped up a day or so ago, but is not entirely sure. Discussed that shingles may be contributing to his symptoms. It is also possible that he has a combination of this with sciatica. Will treat patient with a course of steroids and Valtrex to treat both shingles and sciatica. Prescription for prednisone and Valtrex provided. He was also sent home with capsaicin cream to see if that offers any additional benefit. Patient discharged home in stable condition. Case discussed with ED attending Dr. Reddy. Return precautions reviewed in depth, the patient is instructed to return to the emergency department with any new, worsening, or concerning symptoms. Patient verbalized understanding. Undiagnosed new problem with uncertain prognosis? @ -None Drug Therapy requiring intensive monitoring for toxicity (Heparin, Nitro, Insulin, Cardizem)? @ -None Were any procedures done? @ -None Diagnosis/symptom? @ -Sciatica/left lumbar radiculopathy, herpes zoster, left hip pain Acute, or Chronic, or Acute on Chronic? @ -Acute Uncomplicated (without systemic symptoms) or Complicated (systemic symptoms)? @ -Uncomplicated Side effects of treatment? @ -None Exacerbation, Progression, or Severe Exacerbation] @ -Not applicable Poses a threat to life or bodily function? @ -The pain may limit his ability to ambulate for the mean time. - Radiology Data Radiology results: report reviewed, image reviewed Disposition Clinical Impression: Left hip pain, Sciatica, Herpes zoster, Nicotine dependence Disposition: HOME SELF-CARE Instructions (If sedation given, give patient instructions): Shingles (ED), Sciatica (ED), Hip Pain (ED) Additional Instructions: Return to the emergency department with any new, worsening, or concerning symptoms. Take the prednisone daily for 5 days and the Valtrex every 8 hours for 7 days. You can apply the capsaicin cream provided 3-4 times daily. Take the [place] sparingly when your pain is the most severe. Follow up with your primary care provider in 1-2 days. Prescriptions: HYDROcodone/APAP 7.5-325MG [[place] 7.5-325] 1 tab PO Q6HR PRN 3 Days #12 tab PRN Reason: Pain predniSONE 50 mg PO DAILY 5 Days #5 tab valACYclovir HCL [Valacyclovir] 1,000 mg PO Q8H 7 Days #21 tab Is patient prescribed a controlled substance at d/c from ED?: Yes When asked, does pt state using other controlled substances?: No If prescribed controlled substance>3 days was MAPS reviewed?: Prescribed <3 Days Referrals: Jael Ravi MD [Primary Care Provider] - 1-2 days Time of Disposition: 08:30
[2024-08-15] MEDS: KETOROLAC 15 MG/ML 1 ML VIAL IVP STA (07:18)
[2024-08-15] MEDS: ORPHENADRINE 30 MG/ML 2 ML VIAL IVP STA (07:22)
[2024-08-15] MEDS: DEXAMETHASONE SOD PHOSPHATE 10 MG/ML 1 ML VIAL IVP STA (07:22)
--- NOTE | 2024-08-15 07:46 | XR ---
EXAMINATION TYPE: XR Hip LT and AP Pelvis DATE OF EXAM: 08/15/2024 COMPARISON: None HISTORY: Pain without injury TECHNIQUE: A single AP view of the pelvis is obtained. Two views of the left hip are obtained. FINDINGS: There is no acute fracture/dislocation evident in the pelvis. The hip and sacroiliac join ts appear symmetric and unremarkable. The overlying soft tissue appears unremarkable. Two views of left hip show no acute fracture or dislocation. No focal lytic or sclerotic lesion seen in the proximal left femur. The overlying soft tissue is unremarkable. There is mild narrowing of the hip joint with hypertrophic spurring which indicates mild osteoarthritis IMPRESSION: There is no acute fracture or dislocation in the pelvis or left hip. Mild osteoarthritic change of the left hip. [facility], Workstation: [email or web address] 08/15/2024 7:43 AM
[2024-08-15] MEDS: HYDROmorphone 1 MG/ML 1 ML SYRINGE IVP STA ×2 (08:03→08:45)
[2024-08-15] MEDS: CAPSAICIN 0.025% CREAM 60 GM TUBE TOPICAL STA (08:45)
== END 2024-08-15 08:30 | disposition home or self-care (01) ==
LOC: EC 06:56
CPT/HCPCS: 73502; 96374; 96375; 96376; 99284